=== PATIENT | male | born 1970 | race Hispanic/Latino ===

== ENCOUNTER 2020-01-11 20:09 | Emergency (ER) | payer SELFPAY ==
[~2020-01-11] VITALS: Ht 175.3 cm; Wt 109.8 kg
--- OUTSIDE RECORDS SUMMARY | 2020-01-11 20:13 | XMS REPORT ---
Author Author [facility] Address Unknown Phone Unavailable Care Team Providers Care Adult Education Professional Name Role Phone Unavailable Unavailable Problems This patient has no known problems. Allergies, Adverse Reactions, Alerts This patient has no known allergies or adverse reactions. Medications This patient has no known medications. Encounters Start Date/Time End Date/Time Encounter Type Admission Type Attending [facility] Facility Care Department Encounter ID 2018-04-23 00:00:00 Inpatient [facility] [id number] 2018-04-23 00:00:00 Inpatient [facility] [id number] 2018-04-22 22:47:04 Inpatient [facility] [id number] 2020-02-19 00:00:00 2020-02-19 00:00:00 Outpatient [facility] [id number] 2020-02-12 00:00:00 2020-02-12 00:00:00 Outpatient [facility] [id number] 2020-01-08 00:00:00 2020-01-08 00:00:00 Outpatient [facility] [id number] 2019-11-22 16:12:16 2019-11-22 16:12:16 Outpatient [facility] [id number] 2019-11-21 00:00:00 2019-11-21 00:00:00 Outpatient [facility] [id number] 2019-11-06 08:31:11 2019-11-06 08:31:11 Outpatient [facility] [id number] 2019-10-27 13:06:11 2019-10-27 13:06:11 Outpatient [facility] [id number] 2019-10-26 00:00:00 2019-10-26 00:00:00 Outpatient [facility] [id number] 2019-10-16 08:37:32 2019-10-16 08:37:32 Outpatient [facility] [id number] 2019-10-16 00:00:00 2019-10-16 00:00:00 Outpatient [facility] [id number] 2019-10-11 09:21:01 2019-10-11 09:21:01 Outpatient [facility] [id number] 2019-09-06 12:55:49 2019-09-06 12:55:49 Outpatient [facility] [id number] 2019-08-28 08:39:01 2019-08-28 08:39:01 Outpatient [facility] [id number] 2019-08-28 00:00:00 2019-08-28 00:00:00 Outpatient [facility] [id number] 2019-08-16 14:27:59 2019-08-16 14:27:59 Outpatient [facility] [id number] 2019-08-16 14:08:48 2019-08-16 14:08:48 Outpatient [facility] [id number] 2019-08-16 12:54:51 2019-08-16 12:54:51 Outpatient [facility] [id number] 2019-08-15 12:42:35 2019-08-15 12:42:35 Outpatient [facility] [id number] 2019-07-20 13:26:24 2019-07-20 13:26:24 Outpatient [facility] [id number] 2019-07-03 00:00:00 2019-07-03 00:00:00 Outpatient [facility] [id number] 2019-06-29 13:44:22 2019-06-29 13:44:22 Outpatient [facility] [id number] 2019-06-28 10:51:44 2019-06-28 10:51:44 Outpatient [facility] [id number] 2019-06-28 10:12:15 2019-06-28 10:12:15 Outpatient [facility] [id number] 2019-06-28 00:00:00 2019-06-28 00:00:00 Outpatient [facility] [id number] 2019-06-28 00:00:00 2019-06-28 00:00:00 Outpatient [facility] [id number] 2019-06-15 13:22:57 2019-06-15 13:22:57 Outpatient [facility] [id number] 2019-05-30 14:06:49 2019-05-30 14:06:49 Outpatient [facility] [id number] 2019-05-25 00:00:00 2019-05-25 00:00:00 Outpatient [facility] [id number] 2019-05-09 16:03:04 2019-05-09 16:03:04 Outpatient [facility] [id number] 2019-05-09 14:46:29 2019-05-09 14:46:29 Outpatient [facility] [id number] 2019-05-09 08:52:04 2019-05-09 08:52:04 Outpatient [facility] [id number] 2019-05-09 00:00:00 2019-05-09 00:00:00 Outpatient [facility] [id number] 2019-05-04 15:19:26 2019-05-04 15:19:26 Outpatient [facility] [id number] 2019-05-02 14:33:43 2019-05-02 14:33:43 Outpatient [facility] [id number] 2019-04-28 13:04:06 2019-04-28 13:04:06 Outpatient [facility] [id number] 2019-04-24 00:00:00 2019-04-24 00:00:00 Outpatient [facility] [id number] 2019-04-20 15:01:53 2019-04-20 15:01:53 Outpatient [facility] [id number] 2019-04-14 00:00:00 2019-04-14 00:00:00 Outpatient [facility] [id number] 2019-04-13 00:00:00 2019-04-13 00:00:00 Outpatient [facility] [id number] 2019-04-11 15:22:52 2019-04-11 15:22:52 Outpatient [facility] [id number] 2019-04-10 00:00:00 2019-04-10 00:00:00 Outpatient [facility] [id number] 2019-04-07 15:06:30 2019-04-07 15:06:30 Outpatient [facility] [id number] 2019-04-07 00:00:00 2019-04-07 00:00:00 Outpatient [facility] [id number] 2019-04-04 15:05:59 2019-04-04 15:05:59 Outpatient [facility] [id number] 2019-03-30 14:59:52 2019-03-30 14:59:52 Outpatient [facility] [id number] 2019-03-27 15:34:30 2019-03-27 15:34:30 Outpatient [facility] [id number] 2019-03-23 00:00:00 2019-03-23 00:00:00 Outpatient [facility] [id number] 2019-03-21 13:36:47 2019-03-21 13:36:47 Outpatient [facility] [id number] 2019-03-16 17:50:43 2019-03-16 17:50:43 Outpatient [facility] [id number] 2019-03-16 15:01:16 2019-03-16 15:01:16 Outpatient [facility] [id number] 2019-03-13 12:45:08 2019-03-13 12:45:08 Outpatient [facility] [id number] 2019-03-09 15:15:45 2019-03-09 15:15:45 Outpatient [facility] [id number] 2019-02-23 13:59:41 2019-02-23 13:59:41 Outpatient [facility] [id number] 2019-02-20 08:32:52 2019-02-20 08:32:52 Outpatient [facility] [id number] 2019-01-06 00:00:00 2019-01-06 00:00:00 Outpatient [facility] [id number] 2018-12-20 00:00:00 2018-12-20 00:00:00 Outpatient [facility] [id number] 2018-12-13 12:09:29 2018-12-13 12:09:29 Outpatient [facility] [id number] 2018-12-13 00:00:00 2018-12-13 00:00:00 Outpatient [facility] [id number] 2018-12-06 09:31:57 2018-12-06 09:31:57 Outpatient [facility] [id number] 2018-12-06 07:49:07 2018-12-06 07:49:07 Outpatient [facility] [id number] 2018-12-06 00:00:00 2018-12-06 00:00:00 Outpatient [facility] [id number] 2018-11-29 09:12:01 2018-11-29 09:12:01 Outpatient [facility] [id number] 2018-11-23 11:13:06 2018-11-23 11:13:06 Outpatient [facility] [id number] 2018-11-18 10:10:54 2018-11-18 10:10:54 Outpatient [facility] [id number] 2018-11-11 07:13:37 2018-11-11 07:13:37 Outpatient [facility] [id number] 2018-11-03 08:52:56 2018-11-03 08:52:56 Outpatient [facility] [id number] 2018-10-31 11:08:41 2018-10-31 11:08:41 Outpatient [facility] [id number] 2018-10-28 10:16:45 2018-10-28 10:16:45 Outpatient [facility] [id number] 2018-10-27 09:09:13 2018-10-27 09:09:13 Outpatient [facility] [id number] 2018-10-25 14:41:44 2018-10-25 14:41:44 Outpatient [facility] [id number] 2018-10-12 10:36:20 2018-10-12 10:36:20 Outpatient [facility] [id number] 2018-10-11 10:33:33 2018-10-11 10:33:33 Outpatient [facility] [id number] 2018-09-20 13:53:29 2018-09-20 13:53:29 Outpatient [facility] [id number] 2018-09-08 11:05:38 2018-09-08 11:05:38 Outpatient [facility] [id number] 2018-08-31 11:24:01 2018-08-31 11:24:01 Outpatient [facility] [id number] 2018-08-31 00:00:00 2018-08-31 00:00:00 Outpatient [facility] [id number] 2018-08-30 09:37:56 2018-08-30 09:37:56 Outpatient [facility] [id number] 2018-08-30 00:00:00 2018-08-30 00:00:00 Outpatient [facility] [id number] 2018-08-23 00:00:00 2018-08-23 00:00:00 Outpatient [facility] [id number] 2018-08-22 08:30:21 2018-08-22 08:30:21 Outpatient [facility] [id number] 2018-08-17 15:14:35 2018-08-17 15:14:35 Outpatient [facility] [id number] 2018-08-16 10:00:32 2018-08-16 10:00:32 Outpatient [facility] [id number] 2018-08-05 10:20:00 2018-08-05 10:20:00 Outpatient [facility] [id number] 2018-08-05 00:00:00 2018-08-05 00:00:00 Outpatient [facility] [id number] 2018-07-29 11:47:22 2018-07-29 11:47:22 Outpatient [facility] [id number] 2018-07-29 00:00:00 2018-07-29 00:00:00 Outpatient [facility] [id number] 2018-07-26 00:00:00 2018-07-26 00:00:00 Outpatient [facility] [id number] 2018-07-11 13:18:51 2018-07-11 13:18:51 Outpatient [facility] [id number] 2018-06-29 00:00:00 2018-06-29 00:00:00 Outpatient [facility] [id number] 2018-06-27 13:49:13 2018-06-27 13:49:13 Outpatient [facility] [id number] 2018-06-21 08:13:24 2018-06-21 08:13:24 Outpatient [facility] [id number] 2018-06-21 00:00:00 2018-06-21 00:00:00 Outpatient [facility] [id number] 2018-06-11 18:01:11 2018-06-11 18:01:11 Emergency [facility] [id number] 2018-06-11 17:13:03 2018-06-11 17:13:03 Emergency [facility] [id number] 2018-06-10 00:00:00 2018-06-10 00:00:00 Outpatient [facility] [id number] 2018-06-09 00:00:00 2018-06-09 00:00:00 Outpatient [facility] [id number] 2018-05-31 09:39:44 2018-05-31 09:39:44 Outpatient [facility] [id number] 2018-05-31 08:41:00 2018-05-31 08:41:00 Outpatient [facility] [id number] 2018-05-23 14:44:13 2018-05-23 14:44:13 Outpatient [facility] [id number] 2018-05-12 00:00:00 2018-05-12 00:00:00 Outpatient [facility] [id number] 2018-05-10 14:14:06 2018-05-10 14:14:06 Outpatient [facility] [id number] 2018-05-09 00:00:00 2018-05-09 00:00:00 Outpatient [facility] [id number] 2018-05-08 22:21:09 2018-05-08 22:21:09 Emergency [facility] [id number] 2018-04-28 14:42:28 2018-04-28 14:42:28 Emergency [facility] [id number] 2018-04-22 16:36:05 2018-04-22 16:36:05 Emergency [facility] [id number] 2018-04-22 16:09:34 2018-04-22 16:09:34 Inpatient [facility] [id number]
== END 2020-01-11 20:29 | disposition home or self-care (01) ==
LOC: ER 20:09
DX: E11.622 Type 2 diabetes mellitus with other skin ulcer (principal); L97.919 Non-pressure chronic ulcer of unspecified part of right lower leg with unspecified severity; L98.491 Non-pressure chronic ulcer of skin of other sites limited to breakdown of skin; I10 Essential (primary) hypertension; Z89.512 Acquired absence of left leg below knee
CPT/HCPCS: 99282

== ENCOUNTER 2024-12-08 22:12 | Inpatient (IN) | payer SELFPAY ==
[~2024-12-08] VITALS: Ht 175.3 cm; Wt 98.0 kg
[2024-12-08 22:18] VITALS: TEMP 99.1
[2024-12-08 22:52] LABS: BASOPHILS % 0.4 % (0.0-1.0); EOSINOPHILS # (AUTO) 0.1 (0.0-0.4); EOSINOPHILS % 0.9 % (0.0-6.0); HEMATOCRIT 32.8 % (38.2-49.6); LYMPHOCYTES # (AUTO) 1.7 (1.0-3.2); LYMPHOCYTES % 15.4 % (18.0-39.1); MEAN CORPUSCULAR HGB CONC 33.5 g/dL (31-35); MEAN CORPUSCULAR VOLUME 95.3 fL (81-99); MONOCYTES # (AUTO) 1.2 (0.2-0.8); MONOCYTES % 10.7 % (4.4-11.3); NEUTROPHILS # (AUTO) 7.7 (2.1-6.9); NEUTROPHILS % 72.2 % (38.7-80.0); PLATELET COUNT 222 x10e3/uL (140-360); RED BLOOD COUNT 3.44 x10e6/uL (4.3-5.7); RED CELL DISTRIBUTION WIDTH 14.8 % (11.7-14.4); WHITE BLOOD COUNT 10.71 x10e3/uL (4.8-10.8)
[2024-12-08] MEDS: SODIUM CHLORIDE 0.9% 1000ML 1,000 ML IV ONE (22:57)
[2024-12-08 22:59] LABS: INR 1.04; PROTHROMBIN TIME 14.2 seconds (11.9-14.5)
[2024-12-08 23:09] LABS: ALBUMIN 3.5 g/dL (3.5-5.0); ANION GAP 16.2 mmol/L (8-16); BILIRUBIN,TOTAL 0.4 mg/dL (0.2-1.2); CALCIUM 8.6 mg/dL (8.4-10.2); CREATININE, SERUM 2.04 mg/dL (0.72-1.25); POTASSIUM 4.2 mmol/L (3.5-5.1)
[2024-12-08] MEDS: Vancomycin IV 1 GM in SODIUM CHLORIDE 0.9% 250ML 250 ML IV SCH ×2 (23:20→23:30)
[2024-12-08] MEDS ORDERED: ONDANSETRON HCL INJ 2MG/ML 2ML 2 MG/ML VIAL IV PRN (23:30)
[2024-12-08] MEDS: HYDROCODONE/APAP 7.5MG-325MG 1 EA TAB PO PRN (23:34)
[2024-12-08 23:45] VITALS: PULSE 71; RESP 20
[2024-12-09] VITALS (10 sets, daily range): BP systolic 105–136; BP diastolic 42–63; PULSE 68–97; RESP 18–20; TEMP 97.3–98.2; O2SAT 96–99
[2024-12-09] MEDS ORDERED: FARXIGA10 MG PO (01:10)
[2024-12-09] MEDS ORDERED: HYDROCHLOROTHIA25 MG PO (01:11)
[2024-12-09] MEDS ORDERED: BACTRIM 400-801 EACH PO ×2 (01:12)
[2024-12-09] MEDS ORDERED: GLIMEPIRIDE4 MG PO (01:14)
[2024-12-09] MEDS ORDERED: ACTOS15 MG PO (01:15)
[2024-12-09] MEDS ORDERED: DIOVAN80 MG PO (01:16)
[2024-12-09] MEDS ORDERED: METHOCARBAMOL750 MG PO (01:16)
[2024-12-09] MEDS ORDERED: LIPITOR20 MG PO (01:18)
[2024-12-09] MEDS ORDERED: NEURONTIN300 MG PO (01:18)
[2024-12-09] MEDS ORDERED: LIRAGLUTID0.6 MG/0.1 INJ (01:20)
[2024-12-09] MEDS: SODIUM CHLORIDE 0.9% 1000ML 1,000 ML IV ONE (02:30)
[2024-12-09 06:33] LABS: BASOPHILS # (AUTO) 0.1 (0.0-0.1); BASOPHILS % 0.6 % (0.0-1.0); EOSINOPHILS # (AUTO) 0.2 (0.0-0.4); EOSINOPHILS % 1.9 % (0.0-6.0); HEMATOCRIT 31.4 % (38.2-49.6); HEMOGLOBIN 10.1 g/dL (14.0-18.0); LYMPHOCYTES # (AUTO) 2.4 (1.0-3.2); LYMPHOCYTES % 24.8 % (18.0-39.1); MEAN CORPUSCULAR HEMOGLOBIN 31.6 pg (28-32); MEAN CORPUSCULAR HGB CONC 32.2 g/dL (31-35); MEAN CORPUSCULAR VOLUME 98.1 fL (81-99); MONOCYTES # (AUTO) 1.2 (0.2-0.8); MONOCYTES % 11.9 % (4.4-11.3); NEUTROPHILS # (AUTO) 5.9 (2.1-6.9); NEUTROPHILS % 60.5 % (38.7-80.0); PLATELET COUNT 201 x10e3/uL (140-360); RED CELL DISTRIBUTION WIDTH 14.7 % (11.7-14.4); WHITE BLOOD COUNT 9.69 x10e3/uL (4.8-10.8)
[2024-12-09 06:45] LABS: ALBUMIN 3.1 g/dL (3.5-5.0); ANION GAP 13.7 mmol/L (8-16); BILIRUBIN,TOTAL 0.4 mg/dL (0.2-1.2); CALCIUM 8.2 mg/dL (8.4-10.2); CREATININE, SERUM 1.72 mg/dL (0.72-1.25); POTASSIUM 3.7 mmol/L (3.5-5.1); TOTAL PROTEIN 6.2 g/dL (6.5-8.1)
[2024-12-09] MEDS: INSULIN REGULAR, HUMAN 100 UNIT/1 ML SQ SCH (07:30)
[2024-12-09] MEDS: DEXTROSE 50% SYRINGE 50 ML IV PRN (07:32)
[2024-12-09] MEDS: SODIUM CHLORIDE 0.9% 250ML 250 ML ONE (19:26)
[2024-12-09] MEDS: METHOCARBAMOL 750 MG TAB PO SCH (20:51)
[2024-12-09] MEDS: GABAPENTIN 300 MG CAP PO SCH (20:52)
[2024-12-09] MEDS: ATORVASTATIN 20 MG TAB PO SCH (20:52)
[2024-12-10 00:27] VITALS: BP 108/52; PULSE 80; RESP 17; TEMP 97.3; O2SAT 99
[2024-12-10 04:00] VITALS: BP 121/61; PULSE 78; RESP 18; TEMP 97.4; O2SAT 99
[2024-12-10 06:45] LABS: BASOPHILS # (AUTO) 0.1 (0.0-0.1); BASOPHILS % 0.7 % (0.0-1.0); EOSINOPHILS # (AUTO) 0.3 (0.0-0.4); EOSINOPHILS % 3.3 % (0.0-6.0); HEMATOCRIT 31.2 % (38.2-49.6); HEMOGLOBIN 10.2 g/dL (14.0-18.0); LYMPHOCYTES # (AUTO) 2.1 (1.0-3.2); LYMPHOCYTES % 25.2 % (18.0-39.1); MEAN CORPUSCULAR HEMOGLOBIN 31.6 pg (28-32); MEAN CORPUSCULAR HGB CONC 32.7 g/dL (31-35); MEAN CORPUSCULAR VOLUME 96.6 fL (81-99); MONOCYTES # (AUTO) 0.9 (0.2-0.8); MONOCYTES % 10.4 % (4.4-11.3); NEUTROPHILS % 59.9 % (38.7-80.0); PLATELET COUNT 207 x10e3/uL (140-360); RED BLOOD COUNT 3.23 x10e6/uL (4.3-5.7); RED CELL DISTRIBUTION WIDTH 14.4 % (11.7-14.4); WHITE BLOOD COUNT 8.26 x10e3/uL (4.8-10.8)
[2024-12-10 07:24] LABS: ANION GAP 12.4 mmol/L (8-16); CALCIUM 8.7 mg/dL (8.4-10.2); CREATININE, SERUM 1.39 mg/dL (0.72-1.25); POTASSIUM 4.4 mmol/L (3.5-5.1)
[2024-12-10] MEDS: FAMOTIDINE 20 MG TAB PO SCH ×2 (07:30→16:30)
[2024-12-10 07:47] LABS: THYROID STIMULATING HORMONE 1.532 uIU/mL (0.350-4.940)
[2024-12-10] MEDS: PIOGLITAZONE HCL 15 MG TAB PO SCH (09:00)
[2024-12-10 09:27] VITALS: BP 145/66; PULSE 83; RESP 20; TEMP 97.8; O2SAT 99
[2024-12-10] MEDS: VALSARTAN 80 MG TAB PO SCH (09:34)
[2024-12-10] MEDS: HYDROCHLOROTHIAZIDE 25 MG TAB PO SCH (09:35)
[2024-12-10 09:51] VITALS: BP 145/66; PULSE 83; RESP 20; TEMP 97.8; O2SAT 99
[2024-12-10 18:53] VITALS: BP 108/31; PULSE 82; RESP 20; TEMP 98.3; O2SAT 98
[2024-12-10 20:00] VITALS: BP 136/58; PULSE 64; RESP 18; TEMP 98.7; O2SAT 100
[2024-12-11] VITALS (7 sets, daily range): BP systolic 117–163; BP diastolic 55–81; PULSE 70–84; RESP 20; TEMP 97.6–98; O2SAT 98–100
[2024-12-11] MEDS: ASPIRIN 81 MG ENTERIC COATED PO SCH (12:21)
[2024-12-11] MEDS ORDERED: POVIDONE IODINE 10% 120 ML BTL EXT PRN (13:30)
[2024-12-11] MEDS: ENOXAPARIN SOD INJ 40 MG/0.4 ML SYR SC SCH (18:11)
[2024-12-12] VITALS (7 sets, daily range): BP systolic 98–135; BP diastolic 50–70; PULSE 68–79; RESP 18–20; TEMP 97.6–98.4; O2SAT 98–100
[2024-12-12 07:04] LABS: BASOPHILS # (AUTO) 0.1 (0.0-0.1); BASOPHILS % 0.9 % (0.0-1.0); EOSINOPHILS # (AUTO) 0.3 (0.0-0.4); HEMATOCRIT 30.9 % (38.2-49.6); HEMOGLOBIN 10.1 g/dL (14.0-18.0); LYMPHOCYTES % 29.9 % (18.0-39.1); MEAN CORPUSCULAR HEMOGLOBIN 32.1 pg (28-32); MEAN CORPUSCULAR HGB CONC 32.7 g/dL (31-35); MEAN CORPUSCULAR VOLUME 98.1 fL (81-99); MONOCYTES # (AUTO) 0.6 (0.2-0.8); MONOCYTES % 8.2 % (4.4-11.3); NEUTROPHILS # (AUTO) 3.9 (2.1-6.9); NEUTROPHILS % 56.4 % (38.7-80.0); PLATELET COUNT 214 x10e3/uL (140-360); RED BLOOD COUNT 3.15 x10e6/uL (4.3-5.7); WHITE BLOOD COUNT 6.82 x10e3/uL (4.8-10.8)
[2024-12-12 07:22] LABS: ANION GAP 11.9 mmol/L (8-16); CALCIUM 8.7 mg/dL (8.4-10.2); CREATININE, SERUM 0.93 mg/dL (0.72-1.25); POTASSIUM 4.9 mmol/L (3.5-5.1)
[2024-12-12] MEDS ORDERED: SODIUM CHLORIDE 0.9% 100 ML ONE (10:50)
[2024-12-12] MEDS ORDERED: IOPAMIDOL 370 MG/ML 100 ML INFUS..BTL INJ ONE (10:50)
[2024-12-12] MEDS ORDERED: VANCOMYCIN 1.25GM/250 ML (PEG) 250 ML IV SCH (11:00)
[2024-12-12] MEDS: VANCOMYCIN HCL 1.25 GM in SODIUM CHLORIDE 0.9% 250ML 250 ML IV SCH (11:55)
[2024-12-13] VITALS (13 sets, daily range): BP systolic 111–162; BP diastolic 50–75; PULSE 74–90; RESP 17–20; TEMP 97.2–98.2; O2SAT 97–100
[2024-12-13] MEDS ORDERED: LIDOCAINE HCL 1% 30ML-PF VIAL ONE (09:43)
[2024-12-13] MEDS ORDERED: IOPAMIDOL 370 MG/ML 100 ML INFUS..BTL INJ ONE (09:44)
[2024-12-13] MEDS ORDERED: SODIUM CHLORIDE 0.9% 250ML 250 ML ONE ×2 (09:44→09:59)
[2024-12-13] MEDS ORDERED: SODIUM CHLORIDE 0.9% 500ML 500 ML ONE (09:44)
[2024-12-13] MEDS ORDERED: FENTANYL CITRATE/PF 100MCG/2 ML INJ ONE (09:59)
[2024-12-13] MEDS ORDERED: MIDAZOLAM HCL 2 MG/2 ML VIAL ONE (09:59)
[2024-12-13] MEDS: HEPARIN SOD (PORCINE) 1000 UNIT/ML SDV ONE (12:42)
[2024-12-13] MEDS: ACETAMINOPHEN 325 MG TAB PO PRN (18:21)
[2024-12-14] VITALS (7 sets, daily range): BP systolic 127–152; BP diastolic 56–76; PULSE 72–83; RESP 18–20; TEMP 97–98.6; O2SAT 96–100
[2024-12-14] MEDS: ALTEPLASE RECOMBINANT 2 MG/2 ML VIAL IV ONE (22:36)
[2024-12-15] VITALS (7 sets, daily range): BP systolic 131–168; BP diastolic 60–79; PULSE 69–77; RESP 17–20; TEMP 97.6–98.3; O2SAT 96–98
[2024-12-15 06:13] LABS: BASOPHILS # (AUTO) 0.1 (0.0-0.1); BASOPHILS % 0.8 % (0.0-1.0); EOSINOPHILS # (AUTO) 0.3 (0.0-0.4); EOSINOPHILS % 3.3 % (0.0-6.0); LYMPHOCYTES # (AUTO) 2.5 (1.0-3.2); LYMPHOCYTES % 32.7 % (18.0-39.1); MEAN CORPUSCULAR HEMOGLOBIN 32.2 pg (28-32); MEAN CORPUSCULAR HGB CONC 33.3 g/dL (31-35); MEAN CORPUSCULAR VOLUME 96.5 fL (81-99); MONOCYTES # (AUTO) 0.8 (0.2-0.8); MONOCYTES % 10.3 % (4.4-11.3); NEUTROPHILS # (AUTO) 3.9 (2.1-6.9); NEUTROPHILS % 52.4 % (38.7-80.0); PLATELET COUNT 217 x10e3/uL (140-360); RED BLOOD COUNT 3.11 x10e6/uL (4.3-5.7); RED CELL DISTRIBUTION WIDTH 13.7 % (11.7-14.4); WHITE BLOOD COUNT 7.49 x10e3/uL (4.8-10.8)
[2024-12-15 06:37] LABS: ANION GAP 12.2 mmol/L (8-16); CALCIUM 8.6 mg/dL (8.4-10.2); CREATININE, SERUM 0.93 mg/dL (0.72-1.25); POTASSIUM 4.2 mmol/L (3.5-5.1)
[2024-12-15] MEDS: ALTEPLASE RECOMBINANT 2 MG/2 ML VIAL ONE (06:57)
[2024-12-15] MEDS ORDERED: PROPOFOL IV EMULSION 10 MG/ML 20 ML VIAL ONE (09:40)
[2024-12-15] MEDS ORDERED: LIDOCAINE HCL 2% LOCAL INJ 5 ML SDV VIAL INJ ONE (09:40)
[2024-12-15] MEDS ORDERED: FENTANYL CITRATE/PF 100MCG/2 ML INJ ONE (09:40)
[2024-12-15] MEDS ORDERED: SEVOFLURANE INHAL SOLN 250 ML PEN BTL ONE ×2 (09:40→10:27)
[2024-12-15] MEDS ORDERED: FAMOTIDINE 20 MG/2 ML VIAL IV ONE (10:25)
[2024-12-15] MEDS ORDERED: ONDANSETRON HCL INJ 2MG/ML 2ML 2 MG/ML VIAL ONE (10:25)
[2024-12-15] MEDS ORDERED: ACETAMINOPHEN 1000 MG/100 ML 100 ML IV ONE (10:27)
[2024-12-15] MEDS ORDERED: EPHEDRINE SULFATE INJ 50 MG/ML VIAL ONE (10:57)
[2024-12-15] MEDS: Morphine 4mg INJECTION 4 MG/ML INJ IV STA (17:12)
[2024-12-15] MEDS ORDERED: ONDANSETRON ODT4 MG PO (17:17)
[2024-12-15] MEDS ORDERED: PLAVIX75 MG PO (17:17)
[2024-12-15] MEDS ORDERED: HYDROCODON-ACE1 EA12 PO (17:17)
[2024-12-15] MEDS ORDERED: ASPIRIN EC81 MG PO (17:17)
[2024-12-15] MEDS ORDERED: ACETAMINOPHEN325 M1 PO (17:17)
[2024-12-15] MEDS ORDERED: FAMOTIDINE20 MG PO (17:17)
[2024-12-16 04:00] VITALS: BP 161/69; PULSE 75; RESP 20; TEMP 98.1; O2SAT 98
[2024-12-16] MEDS: CEFTRIAXONE 2 GM in SODIUM CHLORIDE 0.9% 100 ML IV ONE (08:59)
[2024-12-16 09:46] VITALS: BP 140/49; PULSE 75; RESP 20; TEMP 97.8; O2SAT 99
[2024-12-16] MEDS ORDERED: Morphine 2mg Syringe 2 MG/ML SYR IV ONE (11:00)
[2024-12-16] MEDS: Morphine 2mg Syringe 2 MG/ML SYR IV ONE (11:15)
[2024-12-16] MEDS: HYDROCODONE/APAP 7.5MG-325MG 1 EA TAB PO PRN (12:45)
[2024-12-16 13:26] VITALS: BP 148/67; PULSE 72; RESP 20; TEMP 97.6; O2SAT 99
== END 2024-12-16 14:38 | disposition home health service (06) | DRG 253 ==
LOC: ER 22:18 → ERHOLD 23:20 → MED/SURG3 23:55
PROVIDERS: ADMIT Internal Medicine; ATTEND Internal Medicine
PROC: 02HV33Z Insertion of Infusion Device into Superior Vena Cava, Percutaneous Approach (ICD-10-PCS; 2024-12-11)
PROC: 047K3ZZ Dilation of Right Femoral Artery, Percutaneous Approach (ICD-10-PCS; principal; 2024-12-13)
PROC: B41F1ZZ Fluoroscopy of Right Lower Extremity Arteries using Low Osmolar Contrast (ICD-10-PCS; 2024-12-13)
PROC: 0Y6X0Z0 Detachment at Right 5th Toe, Complete, Open Approach (ICD-10-PCS; 2024-12-15)
DX: E11.52 Type 2 diabetes mellitus with diabetic peripheral angiopathy with gangrene (principal); I70.92 Chronic total occlusion of artery of the extremities; E11.69 Type 2 diabetes mellitus with other specified complication; M86.9 Osteomyelitis, unspecified; E11.621 Type 2 diabetes mellitus with foot ulcer; L97.518 Non-pressure chronic ulcer of other part of right foot with other specified severity; E11.22 Type 2 diabetes mellitus with diabetic chronic kidney disease; E11.42 Type 2 diabetes mellitus with diabetic polyneuropathy; N18.30 Chronic kidney disease, stage 3 unspecified; I12.9 Hypertensive chronic kidney disease with stage 1 through stage 4 chronic kidney disease, or unspecified chronic kidney disease; E78.00 Pure hypercholesterolemia, unspecified; E66.9 Obesity, unspecified; Z68.31 Body mass index [BMI] 31.0-31.9, adult; Z79.85 Long-term (current) use of injectable non-insulin antidiabetic drugs; Z79.84 Long term (current) use of oral hypoglycemic drugs; Z89.512 Acquired absence of left leg below knee; F17.200 Nicotine dependence, unspecified, uncomplicated
CPT/HCPCS: 36415; 36569; 36902; 71045; 73706; 74470; 75726; 75774; 80048; 80053; 80202; 82948; 83036; 83605; 84443; 85025; 85610; 85730; 86140; 87040; 87071; 87075; 87205; 88304; 88311; 93306; 93926; 94799; 99152; 99153; 99284; C1769; C1887; J0696; J1644; J1650; J2003; J2250; J2270; J2405; J2543; J2997; J7030; J7040; J7050; J7799; Q9967